=== PATIENT | female | born 1955 | race Two or more races ===

== ENCOUNTER 2019-07-12 18:41 | Emergency (ER) | payer BC ==
[~2019-07-12] VITALS: Ht 160 cm; Wt 56.7 kg
[2019-07-12 20:09] LABS: Basophils # (auto) 0.1 uL; Eosinophils # (auto) 0.1 uL; Eosinophils % (auto) 1.1 % (0.0-7.0); Hematocrit 41.8 % (36.0-46.0); Lymphocytes # (auto) 2.4 uL; Lymphocytes % (auto) 37.4 % (10.0-50.0); Mean Corpuscular Hgb Conc. 33.6 g/dL (32.0-36.0); Mean Corpuscular Volume 89.2 fL (80.0-100.0); Monocytes # (auto) 0.6 uL; Monocytes % (auto) 9.2 % (0.0-12.0); Neutrophils # (auto) 3.3 uL; Neutrophils % (auto) 51.3 % (37.0-80.0); Nucleated Red Blood Cells % 0.2 %; Platelet Count (auto) 325 10^3/uL (140-450); Red Blood Cells 4.68 10^6/uL (4.0-5.20); Red Cell Distribution Width 13.3 % (11.8-14.3); White Blood Cell 6.4 10^3/uL (4.4-10.8)
[2019-07-12 20:20] LABS: Albumin 4.2 g/dL (3.4-5.0); Calcium 9.1 mg/dL (8.5-10.1); Potassium 4.5 mmol/L (3.5-5.1)
[2019-07-12 20:22] LABS: BUN/Creatinine Ratio 15.3
[2019-07-12 20:24] LABS: Total Protein 7.6 g/dL (6.4-8.2)
[2019-07-13] MEDS ORDERED: SODIUM CHLORIDE 0.9% 1,000 ML IV ONE (07:26)
[2019-07-13] MEDS ORDERED: SODIUM CHLORIDE 0.9% 500 ML IVB ONE (07:26)
[2019-07-13] MEDS ORDERED: PROMETHAZINE HCL 25 MG/ML 1ML IV PRN (07:30)
[2019-07-13] MEDS ORDERED: KETOROLAC TROMETH 30 MG/ML 1ML VIAL IV ONE (07:30)
[2019-07-13 09:19] LABS: Magnesium 2.4 mg/dL (1.6-2.6)
[2019-07-13 09:57] VITALS: BP 127/62
[2019-07-13 11:34] LABS: Urine Bacteria NONE SEEN /hpf (None Seen); Urine Blood Negative /uL (Negative); Urine Mucus FEW (None Seen); Urine Specific Gravity 1.008 (1.001-1.035); Urine WBC 2 /hpf (0 - 5)
== END 2019-07-13 11:31 | disposition home or self-care (01) ==
LOC: ER 18:46
DX: K52.9 Noninfective gastroenteritis and colitis, unspecified (principal); I10 Essential (primary) hypertension; Z88.0 Allergy status to penicillin; Z90.49 Acquired absence of other specified parts of digestive tract
CPT/HCPCS: 36415; 71046; 74176; 80053; 81001; 83690; 83735; 85025; 93005; 96361; 96374; 96375; 99284; J1885; J2550